=== PATIENT | female | born 1965 | race Caucasian/White ===

== ENCOUNTER → 2017-03-22 | Outpatient (CLI) | payer BC ==
--- NOTE | 2017-03-22 12:42 | REPMRS ---
Patient History The patient states she has not had a clinical breast exam in over a year. No known family history of cancer. Pre-pectoral saline implants in both breasts, 2006. Digital Mammo Screening Bilat: March 22, 2017 - Exam #: [id number] Bilateral CC and MLO view(s) were taken. Technologist: Miriam Adams, Technologist Prior study comparison: 2014, digital bilateral screening mammo, [facility]. FINDINGS: There are scattered fibroglandular densities. There is no evidence of cancer on this mammogram. Bilateral implants grossly intact. ASSESSMENT: BI-RADS/ACR category 2 mammogram. Benign finding(s). Recommendation Routine screening mammogram of both breasts in 1 year (for women over age 40). This mammogram was interpreted with the aid of an FDA-approved computer-aided dectection system. Electronically Signed By: Victorino Razo MD 03/22/17 [id number]
== END ==
LOC: M RAD 09:45
PROVIDERS: ATTEND Family Medicine
DX: Z12.31 Encounter for screening mammogram for malignant neoplasm of breast (principal); Z98.82 Breast implant status; R92.8 Other abnormal and inconclusive findings on diagnostic imaging of breast

== ENCOUNTER → 2017-07-02 | Outpatient (REF) | payer BC ==
[2017-07-02 17:01] LABS: BASO % 0.5 % (0.0-1.0); EOS # 0.1 K/mm3 (0.0-0.50); EOS % 1.3 % (0.0-3.0); LARGE UNSTAINED CELL # 0.1 K/mm3 (0.0-0.4); LARGE UNSTAINED CELL % 1.9 % (0.0-4.0); LYMPH # 1.8 K/mm3 (1.5-4.5); LYMPH % 33.4 % (24.0-44.0); MEAN CORPUSCULAR HEMOGLOBIN 31.3 pg (27.0-33.0); MEAN CORPUSCULAR HGB CONC 34.6 g/dl (32.0-36.5); MEAN CORPUSCULAR VOLUME 90.4 fl (80.0-96.0); MONO # 0.2 K/mm3 (0.0-0.8); MONO % 4.4 % (0.0-5.0); NEUTROPHILS % 58.5 % (36.0-66.0); PLATELET COUNT, AUTOMATED 209 k/mm3 (150-450); RED CELL DISTRIBUTION WIDTH 12.6 % (11.5-14.5); WHITE BLOOD COUNT 5.1 K/mm3 (4.0-10.0)
== END ==
LOC: M SFHCLERA 11:24
PROVIDERS: ATTEND Nurse Practitioner Family
DX: R20.9 Unspecified disturbances of skin sensation (principal)

== ENCOUNTER → 2017-10-01 | Outpatient (REF) | payer BC | LOC: M SFHCLERA 08:58 | PROVIDERS: ATTEND Family Medicine | DX: Z13.1 Encounter for screening for diabetes mellitus (principal); Z13.220 Encounter for screening for lipoid disorders ==

== ENCOUNTER → 2018-05-17 | Outpatient (CLI) | payer BC | LOC: M RAD 09:39 | DX: M79.9 Soft tissue disorder, unspecified (principal) | CPT/HCPCS: 72148 ==

== ENCOUNTER → 2018-11-10 | Outpatient (CLI) | payer BC ==
[~2018-11-10] MED LIST: ALLE60TA69 PO; ARNU1INH; FLON1SPR; MAXA10TA14 PO; PERCOCET PO; VENTAER IN
[2018-11-10 12:59] LABS: BASO # 0.1 10^3/uL (0.0-0.2); BASO % 0.9 % (0.0-1.0); EOS # 0.1 10^3/uL (0.0-0.50); EOS % 1.3 % (0.0-3.0); HEMATOCRIT 35.3 % (36.0-47.0); HEMOGLOBIN 12.3 g/dl (12.0-15.5); LYMPH # 1.4 10^3/uL (1.5-4.5); LYMPH % 26.1 % (24.0-44.0); MEAN CORPUSCULAR HGB CONC 34.8 g/dl (32.0-36.5); MEAN CORPUSCULAR VOLUME 88.9 fl (80.0-96.0); MONO # 0.3 10^3/uL (0.0-0.8); NEUTROPHILS # 3.5 10^3/uL (1.8-7.7); NEUTROPHILS % 65.3 % (36.0-66.0); PLATELET COUNT, AUTOMATED 217 10^3/uL (150-450); RED BLOOD COUNT 3.97 10^6/uL (4.00-5.40); WHITE BLOOD COUNT 5.4 10^3/uL (4.0-10.0)
[2018-11-10 13:16] LABS: BLOOD UREA NITROGEN 11 MG/DL (7-18); CALCIUM LEVEL 8.6 MG/DL (8.5-10.1); CARBON DIOXIDE LEVEL 30 MEQ/L (21-32); CHLORIDE LEVEL 109 MEQ/L (98-107); CREATININE FOR GFR 0.76 MG/DL (0.55-1.30); GLOMERULAR FILTRATION RATE > 60.0 (>51); GLUCOSE, FASTING 99 MG/DL (70-100); POTASSIUM SERUM 3.8 MEQ/L (3.5-5.1); SODIUM LEVEL 143 MEQ/L (136-145)
== END ==
LOC: M LRY 11:09
PROVIDERS: ATTEND Plastic Surgery Surgery of the Hand
DX: Z01.818 Encounter for other preprocedural examination (principal); L90.5 Scar conditions and fibrosis of skin

== ENCOUNTER 2018-11-24 06:05 | Day surgery (SDC) | payer BC ==
[~2018-11-24] VITALS: Ht 175.3 cm; Wt 72.6 kg
[~2018-11-24 06:05] MED LIST changes: +LR 1,000 ML IV ONE; -PERCOCET PO
[2018-11-24] MEDS ORDERED: ceFAZolin 2 GM/D5W 50 ML IV BAG (J0690 PER 500MG) As Ordered ONE (06:51)
[2018-11-24] MEDS ORDERED: LIDOCAINE 1% MDV 20ML VIAL As Ordered ONE (08:17)
[2018-11-24] MEDS ORDERED: EPINEPHrine INJ 1 MG/ML 1ML AMP As Ordered ONE (08:18)
[2018-11-24] MEDS ORDERED: MIDAZOLAM INJ 2 MG/2 ML VIAL (J2250) As Ordered ONE (08:58)
[2018-11-24] MEDS ORDERED: LIDOCAINE 2% INJ 100 MG/5 ML SDV (FOR ANES.) As Ordered ONE (08:58)
[2018-11-24] MEDS ORDERED: dexameTHASONE 4 MG/ML 1ML VIAL (J1100) As Ordered ONE (08:58)
[2018-11-24] MEDS ORDERED: fentaNYL 250 MCG/5 ML INJECTION (J3010) As Ordered ONE (08:58)
[2018-11-24] MEDS ORDERED: ROCURONIUM BROMIDE 50 MG/5 ML VIAL As Ordered ONE (08:58)
[2018-11-24] MEDS ORDERED: PROPOFOL 200 MG/20 ML VIAL As Ordered ONE (08:58)
[2018-11-24] MEDS ORDERED: ceFAZolin 1GM INJ (J0690 PER 500MG) As Ordered ONE (09:04)
[2018-11-24] MEDS ORDERED: ePHEDrine SULFATE 25 MG/5 ML(5MG/ML) SYRINGE As Ordered ONE (09:36)
[2018-11-24] MEDS ORDERED: GLYCOPYRROLATE INJ 0.2 MG/ML 2 ML VIAL As Ordered ONE (10:21)
[2018-11-24] MEDS ORDERED: NEOSTIGMINE 10 MG/10 ML VIAL (J2710) As Ordered ONE (10:21)
[2018-11-24] MEDS ORDERED: ONDANSETRON 4MG/2ML VIAL (J2405) As Ordered ONE (10:22)
[2018-11-24] MEDS ORDERED: KETOROLAC 60 MG/2 ML VIAL (J1885) As Ordered ONE (10:22)
[2018-11-24] MEDS ORDERED: fentaNYL 100 MCG/2 ML INJECTION (J3010) IV PRN (11:15)
[2018-11-24] MEDS ORDERED: LR 1,000 ML IV SCH (11:15)
[2018-11-24] MEDS ORDERED: ONDANSETRON 4MG/2ML VIAL (J2405) IV PRN (11:15)
--- NOTE | 2018-11-24 11:26 | POST-OPPD ---
Postoperative Procedure Note Date Of Procedure: Nov 24, 2018 PREOPERATIVE DIAGNOSIS: Bilateral buttock scars POSTOPERATIVE DIAGNOSIS: same FINDINGS: Bilateral buttock indented horizontal scars. Left worse than left PROCEDURE: Bilateral buttock scar revision with fat grafting SURGEON: Dr Grande ANESTHESIA: GEN SPECIMENS: none ESTIMATED BLOOD LOSS: 100cc REPLACED: none DRAINS: none COMPLICATIONS: none POSTOPERATIVE CONDITION: stable to recovery SOLIS GRANDE DO Nov 24, 2018 11:26
[2018-11-24] MEDS ORDERED: PERCOCET PO (11:29)
[2018-11-24] MEDS ORDERED: PERCOCET 5MG/325MG TAB PO PRN (11:45)
[2018-11-24 14:00] VITALS: BP 122/64
--- NOTE | 2018-11-24 20:12 | RO ---
DATE OF PROCEDURE: 11/24/2018 PREPROCEDURE DIAGNOSIS: Bilateral buttock scars. POSTPROCEDURE DIAGNOSIS: Bilateral buttock scars. PROCEDURE: Bilateral buttock scar revision with fat grafting. SURGEON: Brea Soliz DO ANESTHESIA: General. There is no specimen. Blood loss: 100 mL. No replacement. No drains needed. No complications. Fluids: Tumescent: 1500cc, Aspirate 1450cc, Injected Fat 400cc DESCRIPTION OF PROCEDURE: This is a 53-year-old female who presents to our office with significant deformity on both buttocks, left is worse than right which is horizontal in nature. The patient fell about a year previously and developed a large hematoma, which upon completion of healing created this indent, which was visible through the clothing. The patient wishes to have it revised and improved. The fat grafting technique was introduced to the patient to minimize the scarring, and long discussion was carried out with the patient and her regarding procedure and risks and benefits of fat transfer to the scar, and they want to proceed. On the day of surgery, today, informed consent was confirmed with the patient and her and all the markings were done in the upright position in holding area with both of them present. We are going to plan to take the fat from the lower abdomen and her lower back. And the patient was brought into the operating room, placed in supine position, sequential stockings placed on the lower calf, general anesthesia was induced, and antibiotics were given. She was prepped and draped in the usual sterile fashion. We started our procedure by making two small incisions along the lower portion of the abdomen. Tumescent solution was infiltrated in the area, 800 mL in the lower abdomen. Tumescent solution is normal saline, 20 mL of lidocaine and 1 amp of epinephrine (epi), and then suction-assisted lipectomy was done from the lower abdomen and collected in our enclosed system for the fat straining. Then, the small stab incisions were closed, good symmetry was achieved in her lower abdomen. And the patient was then repositioned in a prone position, and again prepped and re-draped in the usual sterile fashion. Stab incision carried out in the base of the sacrum, tumescent solution was infiltrated in both flanks, a total of 700cc. Then, suction-assisted lipectomy was performed on the lower back and total liposuction was 1450 for front and back. Then, 1 gram of Ancef was introduced into the fat. Fat was and then strained, and we were ready to do the injection. The scar areas were identified. Small stab incision was carried out in the lateral portions of each scar and then the empty cannula without suction was introduced to break down the scar tissue, which all done in subcuticular plane with cannula palpated at all times, going horizontal plane, so the scar tissue was released and then the fat aspirate was then introduced in the area to smooth out the scar, totaling 200 mL on each side, which created good symmetry. There was a little bulge on the right side above the scar with excess skin and a fat, which was removed through the suction just in that small area to contract the skin and make a better symmetry. So, the stab incisions were then closed with interrupted #4-0 Monocryl sutures, and abdominal binder was placed, patient was extubated in the operating room, placed in the lateral position and transferred to the recovery room completing awake. TAB
== END 2018-11-24 14:05 | disposition home or self-care (01) ==
LOC: M SDC 06:05
PROVIDERS: ATTEND Plastic Surgery Surgery of the Hand
DX: L90.5 Scar conditions and fibrosis of skin (principal); J45.909 Unspecified asthma, uncomplicated; Z79.51 Long term (current) use of inhaled steroids; Z79.899 Other long term (current) drug therapy; Z88.8 Allergy status to other drugs, medicaments and biological substances
CPT/HCPCS: 11954; J0690; J1100; J1885; J2250; J2405; J2710; J3010

== ENCOUNTER → 2019-04-18 | Outpatient (CLI) | payer BC ==
[~2019-04-18] MED LIST changes: -LR 1,000 ML IV ONE; +PERCOCET PO
--- NOTE | 2019-04-20 08:59 | REP ---
MAXILLOFACIAL CT WITHOUT CONTRAST: HISTORY: Recurrent sinusitis. Minimal mucosal thickening is present in the maxillary sinuses. The remaining sinuses are clear. The osteomeatal units are patent. The middle and inferior nasal turbinates are partially paradoxical. There is mild deviation of the nasal septum to the right. A spur is present arising from the left side of the nasal septum. The cribriform plate, medial tavera of the orbits, and optic canals are intact. The carotid canals form a segment of the posterolateral tavera of the sphenoid sinus. The sphenoid sinus septum inserts into the left internal carotid canal wall. IMPRESSION: Sinus mucosal thickening as described above. Electronically Signed by Jorge L Dougherty MD 04/20/2019 09:19 A
== END ==
LOC: M RAD 09:26
PROVIDERS: ATTEND Family Medicine
DX: J32.0 Chronic maxillary sinusitis (principal); J34.89 Other specified disorders of nose and nasal sinuses

== ENCOUNTER → 2019-06-27 | Outpatient (CLI) | payer BC ==
[2019-06-27 18:49] LABS: BASO % 1.1 % (0.0-1.0); EOS # 0.1 10^3/uL (0.0-0.50); EOS % 2.7 % (0.0-3.0); HEMATOCRIT 38.5 % (36.0-47.0); HEMOGLOBIN 13.3 g/dl (12.0-15.5); LYMPH # 1.4 10^3/uL (1.5-4.5); LYMPH % 37.5 % (24.0-44.0); MEAN CORPUSCULAR HEMOGLOBIN 31.7 pg (27.0-33.0); MEAN CORPUSCULAR HGB CONC 34.5 g/dl (32.0-36.5); MEAN CORPUSCULAR VOLUME 91.7 fl (80.0-96.0); MONO # 0.3 10^3/uL (0.0-0.8); MONO % 7.5 % (0.0-5.0); NEUTROPHILS # 1.9 10^3/uL (1.8-7.7); NEUTROPHILS % 51.2 % (36.0-66.0); PLATELET COUNT, AUTOMATED 190 10^3/uL (150-450); WHITE BLOOD COUNT 3.7 10^3/uL (4.0-10.0)
[2019-06-27 18:57] LABS: ALBUMIN 3.9 GM/DL (3.2-5.2); BILIRUBIN,TOTAL 0.4 MG/DL (0.2-1.0); CREATININE FOR GFR 1.13 MG/DL (0.55-1.30); GLOMERULAR FILTRATION RATE 53.4 (>51); IMMUNOGLOBULIN E 32.8 IU/ML (<100); POTASSIUM SERUM 4.4 MEQ/L (3.5-5.1); TOTAL PROTEIN 6.6 GM/DL (6.4-8.2)
[2019-06-30 11:01] LABS: ANTINUCLEAR ANTIBODIES DIRECT Negative (Negative)
== END ==
LOC: M LRY 09:54
PROVIDERS: ATTEND Allergy & Immunology
DX: J45.40 Moderate persistent asthma, uncomplicated (principal); J30.1 Allergic rhinitis due to pollen; L50.0 Allergic urticaria

== ENCOUNTER → 2019-11-30 | Outpatient (CLI) | payer BC ==
--- NOTE | 2019-11-30 12:48 | REPMRS ---
Patient History The patient states she has not had a clinical breast exam in over a year. Family history of lung cancer at age 69 in father. Pre-pectoral saline implants in both breasts, 2007. Digital Mammo Screening Bilat: November 30, 2019 - Exam #: [id number] Bilateral CC and MLO view(s) were taken. Technologist: Amita Be Technologist Prior study comparison: March 22, 2017, bilateral digital mammo screening bilat performed at [facility]. FINDINGS: There are scattered fibroglandular densities. The visualized implant margins are smooth. Breast parenchymal density pattern is essentially symmetric. No dominant mass, grouped microcalcification, or architectural distortion is evident on either side. 3-D tomosynthesis shows no additional findings. No significant changes when compared with prior studies. Assessment: BI-RADS/ACR category 2 mammogram. Benign Findings. Recommendation Routine screening mammogram of both breasts in 1 year (for women over age 40). This patient's Lifetime Breast Cancer RIsk is estimated at 9.5 %. This mammogram was interpreted with the aid of an FDA-approved computer-aided dectection system. Electronically Signed By: Vahid Raymundo MD 11/30/19 0697
== END ==
LOC: M RAD 10:04
PROVIDERS: ATTEND Family Medicine
DX: Z12.31 Encounter for screening mammogram for malignant neoplasm of breast (principal); Z98.82 Breast implant status; Z80.1 Family history of malignant neoplasm of trachea, bronchus and lung

== ENCOUNTER → 2020-04-14 | Outpatient (CLI) | payer BC ==
--- NOTE | 2020-04-14 16:11 | REP ---
RIGHT THIRD DIGIT: Four views of the right 3rd digit are performed. No acute fracture or dislocation is seen. There is mild joint space narrowing at the metacarpophalangeal and interphalangeal joints. There is mild soft tissue swelling. Electronically Signed by Victorino Razo MD 04/14/2020 05:07 P
== END ==
LOC: M LRY 15:11
PROVIDERS: ATTEND Physician Assistant
DX: M19.041 Primary osteoarthritis, right hand (principal); M79.89 Other specified soft tissue disorders

== ENCOUNTER → 2020-05-03 | Outpatient (CLI) | payer BC ==
--- NOTE | 2020-05-03 08:51 | REPPI ---
Clinical: Trauma. Swelling. Technique: AP, lateral, bilateral oblique views right third digit . Findings: The osseous structures and joint spaces are intact and normal. There is no evidence for acute fracture or dislocation. Surrounding soft tissues are unremarkable. No subcutaneous emphysema or radiodense foreign body. Impression: Soft tissue swelling. No acute fracture or dislocation. Electronically Signed by Jimenez Roche MD 05/03/2020 08:43 A
== END ==
LOC: M PLAIMG 08:32
PROVIDERS: ATTEND Family Medicine
DX: M79.89 Other specified soft tissue disorders (principal)

== ENCOUNTER → 2020-05-04 | Outpatient (REF) | payer BC ==
[2020-05-04 16:56] LABS: ALBUMIN 3.7 GM/DL (3.2-5.2); ALT/SGPT 36 U/L (12-78); BILIRUBIN,TOTAL 0.5 MG/DL (0.2-1.0); BLOOD UREA NITROGEN 15 MG/DL (7-18); C REACTIVE PROTEIN QUANTITATIV < 0.30 MG/DL (0.00-0.30); CALCIUM LEVEL 9.3 MG/DL (8.5-10.1); CARBON DIOXIDE LEVEL 29 MEQ/L (21-32); CHLORIDE LEVEL 107 MEQ/L (98-107); CHOLESTEROL LEVEL 229 MG/DL (<200); CREATININE FOR GFR 0.92 MG/DL (0.55-1.30); GLOMERULAR FILTRATION RATE > 60.0 (>51); GLUCOSE, FASTING 88 MG/DL (70-100); HDL CHOLESTEROL 51 MG/DL (>40); LDL CHOLESTEROL 156 MG/DL (<100); NON-HDL-C 178 MG/DL; POTASSIUM SERUM 4.1 MEQ/L (3.5-5.1); SODIUM LEVEL 139 MEQ/L (136-145); TOTAL PROTEIN 6.4 GM/DL (6.4-8.2); TRIGLYCERIDES LEVEL 111 MG/DL (<150)
[2020-05-06 21:07] LABS: ANA (HEP2) Positive (.)
== END ==
LOC: M SFHCLERA 09:16
PROVIDERS: ATTEND Family Medicine
DX: Z13.220 Encounter for screening for lipoid disorders (principal); M79.89 Other specified soft tissue disorders

== ENCOUNTER → 2020-08-26 | Outpatient (REF) | payer BC ==
[2020-08-26 17:04] LABS: C REACTIVE PROTEIN QUANTITATIV < 0.30 MG/DL (0.00-0.30); RHEUMATOID FACTOR QUANT < 10.0 IU/ML (<15.0)
[2020-09-01 17:09] LABS: CYCLIC CITRULLINATED PEPTIDE 6 units (0-19); HLA-B27 Negative (.); Lyme Disease IgG/IgM Antibodie <0.91 ISR (0.00-0.90); Lyme Disease IgM Ab Quantitati <0.80 index (0.00-0.79)
== END ==
LOC: M SFHCRHEU 15:01
PROVIDERS: ATTEND Internal Medicine
DX: M06.4 Inflammatory polyarthropathy (principal)

== ENCOUNTER → 2021-08-17 | Outpatient (CLI) | payer BC ==
[2021-08-17 17:11] LABS: BASO # 0.1 10^3/uL (0.0-0.2); BASO % 1.2 % (0.0-1.0); EOS # 0.1 10^3/uL (0.0-0.5); EOS % 1.7 % (0.0-3.0); HEMATOCRIT 37.2 % (36.0-47.0); HEMOGLOBIN 12.6 g/dl (12.0-15.5); LYMPH # 1.7 10^3/uL (1.5-5.0); LYMPH % 40.7 % (24.0-44.0); MEAN CORPUSCULAR HEMOGLOBIN 30.8 pg (27.0-33.0); MEAN CORPUSCULAR HGB CONC 33.9 g/dl (32.0-36.5); MONO # 0.3 10^3/uL (0.0-0.8); MONO % 7.7 % (2.0-8.0); NEUTROPHILS % 48.5 % (36.0-66.0); PLATELET COUNT, AUTOMATED 222 10^3/uL (150-450); RED BLOOD COUNT 4.09 10^6/uL (4.00-5.40); WHITE BLOOD COUNT 4.1 10^3/uL (4.0-10.0)
[2021-08-17 17:20] LABS: ALBUMIN 3.8 GM/DL (3.2-5.2); ALT/SGPT 31 U/L (12-78); BILIRUBIN,TOTAL 0.3 MG/DL (0.2-1.0); BLOOD UREA NITROGEN 11 MG/DL (7-18); CALCIUM LEVEL 9.3 MG/DL (8.5-10.1); CARBON DIOXIDE LEVEL 29 MEQ/L (21-32); CHLORIDE LEVEL 106 MEQ/L (98-107); CHOLESTEROL LEVEL 217 MG/DL (<200); CHOLESTEROL RISK RATIO 3.338 (<5); CREATININE FOR GFR 0.88 MG/DL (0.55-1.30); GLOMERULAR FILTRATION RATE > 60.0 (>51); GLUCOSE, FASTING 89 MG/DL (70-100); HDL CHOLESTEROL 65 MG/DL (>40); LDL CHOLESTEROL 139 MG/DL (<100); NON-HDL-C 152 MG/DL; POTASSIUM SERUM 3.9 MEQ/L (3.5-5.1); SODIUM LEVEL 143 MEQ/L (136-145); TOTAL PROTEIN 6.5 GM/DL (6.4-8.2); TRIGLYCERIDES LEVEL 65 MG/DL (<150)
== END ==
LOC: M WUC 13:03
PROVIDERS: ATTEND Student in an Organized Health Care Education/Training Program
DX: Z00.00 Encounter for general adult medical examination without abnormal findings (principal)

== ENCOUNTER → 2022-03-08 | Outpatient (CLI) | payer BC | LOC: M RAD 09:05 | PROVIDERS: ATTEND Student in an Organized Health Care Education/Training Program | DX: G43.901 Migraine, unspecified, not intractable, with status migrainosus (principal) ==

== ENCOUNTER → 2023-02-06 | Outpatient (CLI) | payer BC ==
[~2023-02-06] MED LIST changes: -MAXA10TA14 PO; +RIZA10TA64 PO
== END ==
LOC: M WHC 13:30
PROVIDERS: ATTEND Student in an Organized Health Care Education/Training Program
DX: Z12.31 Encounter for screening mammogram for malignant neoplasm of breast (principal)

== ENCOUNTER → 2023-02-07 | Outpatient (CLI) | payer BC ==
[2023-02-07 09:56] LABS: BASO # 0.1 10^3/uL (0.0-0.2); BASO % 1.7 % (0.0-1.0); EOS # 0.1 10^3/uL (0.0-0.5); EOS % 1.7 % (0.0-3.0); HEMATOCRIT 38.2 % (36.0-47.0); HEMOGLOBIN 12.9 g/dl (12.0-15.5); LYMPH # 1.2 10^3/uL (1.5-5.0); LYMPH % 41.1 % (24.0-44.0); MEAN CORPUSCULAR HEMOGLOBIN 30.7 pg (27.0-33.0); MEAN CORPUSCULAR HGB CONC 33.8 g/dl (32.0-36.5); MONO # 0.2 10^3/uL (0.0-0.8); NEUTROPHILS # 1.5 10^3/uL (1.5-8.5); NEUTROPHILS % 48.5 % (36.0-66.0); PLATELET COUNT, AUTOMATED 183 10^3/uL (150-450)
[2023-02-07 10:31] LABS: ALBUMIN 3.9 G/DL (3.2-5.2); ALKALINE PHOSPHATASE 47 U/L (46-116); ALT/SGPT 19 U/L (7.0-40); AST/SGOT 19 U/L (<34); BILIRUBIN,TOTAL 0.6 MG/DL (0.3-1.2); BLOOD UREA NITROGEN 19 MG/DL (9-23); CALCIUM LEVEL 8.9 MG/DL (8.5-10.1); CARBON DIOXIDE LEVEL 26 MMOL/L (20-31); CHLORIDE LEVEL 111 MMOL/L (98-107); CHOLESTEROL LEVEL 215 MG/DL (<200); CHOLESTEROL RISK RATIO 3.96 (<5); GLOMERULAR FILTRATION RATE > 60.0 (>51); GLUCOSE, FASTING 81 MG/DL (60-100); HDL CHOLESTEROL 54.2 MG/DL (>40); LDL CHOLESTEROL 151.4 MG/DL (<100); NON-HDL-C 160.8 MG/DL; POTASSIUM SERUM 3.8 MMOL/L (3.5-5.1); SODIUM LEVEL 143 MMOL/L (136-145); TOTAL PROTEIN 6.1 G/DL (5.7-8.2); TRIGLYCERIDES LEVEL 47 MG/DL (<150)
== END ==
LOC: M WUC 08:21
PROVIDERS: ATTEND Student in an Organized Health Care Education/Training Program
DX: Z00.00 Encounter for general adult medical examination without abnormal findings (principal)

== ENCOUNTER → 2024-02-28 | Outpatient (CLI) | payer BC ==
[2024-02-28 13:25] LABS: BASO # 0.1 10^3/uL (0.0-0.2); BASO % 1.4 % (0.0-1.0); EOS # 0.1 10^3/uL (0.0-0.5); EOS % 1.4 % (0.0-3.0); HEMATOCRIT 41.6 % (36.0-47.0); HEMOGLOBIN 14.2 g/dl (12.0-15.5); LYMPH # 1.4 10^3/uL (1.5-5.0); LYMPH % 38.8 % (24.0-44.0); MEAN CORPUSCULAR HEMOGLOBIN 30.9 pg (27.0-33.0); MEAN CORPUSCULAR HGB CONC 34.1 g/dl (32.0-36.5); MEAN CORPUSCULAR VOLUME 90.6 fl (80.0-96.0); MONO # 0.2 10^3/uL (0.0-0.8); MONO % 6.6 % (2.0-8.0); NEUTROPHILS # 1.9 10^3/uL (1.5-8.5); NEUTROPHILS % 51.5 % (36.0-66.0); PLATELET COUNT, AUTOMATED 211 10^3/uL (150-450); RED BLOOD COUNT 4.59 10^6/uL (4.00-5.40); WHITE BLOOD COUNT 3.7 10^3/uL (4.0-10.0)
[2024-02-28 14:05] LABS: ALBUMIN 3.8 G/DL (3.2-5.2); ALKALINE PHOSPHATASE 50 U/L (46-116); ALT/SGPT 19 U/L (7.0-40); AST/SGOT 18 U/L (<34); BILIRUBIN,TOTAL 0.5 MG/DL (0.3-1.2); BLOOD UREA NITROGEN 16 MG/DL (9-23); CALCIUM LEVEL 9.6 MG/DL (8.5-10.1); CARBON DIOXIDE LEVEL 26 MMOL/L (20-31); CHLORIDE LEVEL 108 MMOL/L (98-107); CHOLESTEROL LEVEL 235 MG/DL (<200); CHOLESTEROL RISK RATIO 4.77 (<5); CREATININE FOR GFR 0.91 MG/DL (0.55-1.30); GLOMERULAR FILTRATION RATE > 60.0 (>51); GLUCOSE, FASTING 78 MG/DL (60-100); HDL CHOLESTEROL 49.2 MG/DL (>40); LDL CHOLESTEROL 168.4 MG/DL (<100); NON-HDL-C 185.8 MG/DL; POTASSIUM SERUM 4.3 MMOL/L (3.5-5.1); SODIUM LEVEL 141 MMOL/L (136-145); THYROID STIMULATING HORMONE 1.234 uIU/ML (0.55-4.78); TOTAL PROTEIN 6.3 G/DL (5.7-8.2); TRIGLYCERIDES LEVEL 87 MG/DL (<150)
== END ==
LOC: M WUC 08:10
PROVIDERS: ATTEND Physician Assistant
DX: Z00.00 Encounter for general adult medical examination without abnormal findings (principal); I10 Essential (primary) hypertension

== ENCOUNTER → 2024-03-03 | Outpatient (CLI) | payer BC | LOC: M WHC 15:00 | PROVIDERS: ATTEND Physician Assistant | DX: Z12.31 Encounter for screening mammogram for malignant neoplasm of breast (principal) ==

== ENCOUNTER 2024-04-17 11:49 | Emergency (ER) | payer BC ==
[~2024-04-17] VITALS: Ht 175.3 cm; Wt 75.1 kg
[2024-04-17 13:00] LABS: EOS # 0.1 10^3/uL (0.0-0.5); EOS % 1.5 % (0.0-3.0); HEMATOCRIT 37.4 % (36.0-47.0); HEMOGLOBIN 13.1 g/dl (12.0-15.5); LYMPH # 1.7 10^3/uL (1.5-5.0); LYMPH % 40.9 % (24.0-44.0); MEAN CORPUSCULAR HEMOGLOBIN 31.6 pg (27.0-33.0); MEAN CORPUSCULAR VOLUME 90.1 fl (80.0-96.0); MONO # 0.3 10^3/uL (0.0-0.8); MONO % 7.4 % (2.0-8.0); NEUTROPHILS % 49.2 % (36.0-66.0); PLATELET COUNT, AUTOMATED 218 10^3/uL (150-450); RED BLOOD COUNT 4.15 10^6/uL (4.00-5.40); WHITE BLOOD COUNT 4.1 10^3/uL (4.0-10.0)
[2024-04-17 13:37] LABS: ALBUMIN 3.9 G/DL (3.2-5.2); ALKALINE PHOSPHATASE 52 U/L (46-116); ALT/SGPT 29 U/L (7.0-40); AST/SGOT 19 U/L (<34); BILIRUBIN,TOTAL 0.5 MG/DL (0.3-1.2); BLOOD UREA NITROGEN 14 MG/DL (9-23); CALCIUM LEVEL 9.4 MG/DL (8.5-10.1); CARBON DIOXIDE LEVEL 26 MMOL/L (20-31); CHLORIDE LEVEL 109 MMOL/L (98-107); CREATININE FOR GFR 0.85 MG/DL (0.55-1.30); GLOMERULAR FILTRATION RATE > 60.0 (>51); GLUCOSE, FASTING 92 MG/DL (60-100); POTASSIUM SERUM 3.5 MMOL/L (3.5-5.1); SODIUM LEVEL 142 MMOL/L (136-145); TOTAL PROTEIN 6.5 G/DL (5.7-8.2)
[2024-04-17] MEDS: POTASSIUM CHLORIDE 10MEQ SR TABLET PO ONE (14:38)
[2024-04-17] MEDS: NS 1,000 ML IV ONE (14:39)
[2024-04-17] MEDS ORDERED: LISI5TAB11 PO (14:57)
[2024-04-17 15:34] VITALS: BP 143/85; TEMP 97.6; O2SAT 100
== END 2024-04-17 15:48 | disposition home or self-care (01) ==
LOC: M ED 11:49
DX: R42 Dizziness and giddiness (principal); T46.1X5A Adverse effect of calcium-channel blockers, initial encounter; I10 Essential (primary) hypertension; R00.1 Bradycardia, unspecified; F10.10 Alcohol abuse, uncomplicated; Z88.5 Allergy status to narcotic agent; Z79.52 Long term (current) use of systemic steroids; Z79.811 Long term (current) use of aromatase inhibitors; Z79.899 Other long term (current) drug therapy

== ENCOUNTER → 2024-04-24 | Outpatient (REF) | payer BC ==
[~2024-04-24] MED LIST changes: +LISI5TAB11 PO
[2024-04-24 18:08] LABS: ALBUMIN 3.9 G/DL (3.2-5.2); ALKALINE PHOSPHATASE 53 U/L (46-116); ALT/SGPT 24 U/L (7.0-40); AST/SGOT 11 U/L (<34); BILIRUBIN,TOTAL 0.5 MG/DL (0.3-1.2); BLOOD UREA NITROGEN 16 MG/DL (9-23); CALCIUM LEVEL 9.8 MG/DL (8.5-10.1); CARBON DIOXIDE LEVEL 26 MMOL/L (20-31); CHLORIDE LEVEL 112 MMOL/L (98-107); CREATININE FOR GFR 0.95 MG/DL (0.55-1.30); GLOMERULAR FILTRATION RATE > 60.0 (>51); GLUCOSE, FASTING 90 MG/DL (60-100); POTASSIUM SERUM 4.4 MMOL/L (3.5-5.1); SODIUM LEVEL 144 MMOL/L (136-145); TOTAL PROTEIN 6.5 G/DL (5.7-8.2)
== END ==
LOC: M SFHCLERA 09:13
PROVIDERS: ATTEND Physician Assistant
DX: I10 Essential (primary) hypertension (principal)

== ENCOUNTER → 2024-05-27 | Outpatient (REF) | payer BC | LOC: M SFHCLERA 12:33 | PROVIDERS: ATTEND Physician Assistant | DX: R06.3 Periodic breathing (principal) ==

== ENCOUNTER → 2024-09-10 | Outpatient (CLI) | payer BC | LOC: M SLEEP HO 10:38 | PROVIDERS: ATTEND Physician Assistant Medical | DX: R40.0 Somnolence (principal) | CPT/HCPCS: G0399 ×2 ==

== ENCOUNTER → 2024-09-25 | Outpatient (CLI) | payer BC ==
[2024-09-25 10:50] LABS: BASO # 0.1 10^3/uL (0.0-0.2); BASO % 1.3 % (0.0-1.0); EOS # 0.1 10^3/uL (0.0-0.5); EOS % 1.9 % (0.0-3.0); HEMATOCRIT 38.6 % (36.0-47.0); HEMOGLOBIN 13.3 g/dl (12.0-15.5); LYMPH # 1.6 10^3/uL (1.5-5.0); LYMPH % 43.2 % (24.0-44.0); MEAN CORPUSCULAR HEMOGLOBIN 31.6 pg (27.0-33.0); MEAN CORPUSCULAR HGB CONC 34.5 g/dl (32.0-36.5); MEAN CORPUSCULAR VOLUME 91.7 fl (80.0-96.0); MONO # 0.3 10^3/uL (0.0-0.8); MONO % 7.5 % (2.0-8.0); NEUTROPHILS # 1.7 10^3/uL (1.5-8.5); NEUTROPHILS % 46.1 % (36.0-66.0); PLATELET COUNT, AUTOMATED 206 10^3/uL (150-450); RED BLOOD COUNT 4.21 10^6/uL (4.00-5.40); WHITE BLOOD COUNT 3.8 10^3/uL (4.0-10.0)
[2024-09-25 11:17] LABS: ALBUMIN 3.8 G/DL (3.2-5.2); ALKALINE PHOSPHATASE 50 U/L (35-104); ALT/SGPT 23 U/L (7.0-40); AST/SGOT 14 U/L (<34); BILIRUBIN,TOTAL 0.5 MG/DL (0.3-1.2); BLOOD UREA NITROGEN 16 MG/DL (9-23); CALCIUM LEVEL 9.5 MG/DL (8.5-10.1); CARBON DIOXIDE LEVEL 28 MMOL/L (20-31); CHLORIDE LEVEL 113 MMOL/L (98-107); CHOLESTEROL LEVEL 259 MG/DL (<200); CHOLESTEROL RISK RATIO 5.19 (<5); GLOMERULAR FILTRATION RATE > 60.0 (>51); GLUCOSE, FASTING 94 MG/DL (60-100); HDL CHOLESTEROL 49.9 MG/DL (>40); LDL CHOLESTEROL 191.3 MG/DL (<100); NON-HDL-C 209.1 MG/DL; POTASSIUM SERUM 4.1 MMOL/L (3.5-5.1); SODIUM LEVEL 144 MMOL/L (136-145); TOTAL PROTEIN 6.5 G/DL (5.7-8.2); TRIGLYCERIDES LEVEL 89 MG/DL (<150)
[2024-09-25 11:20] LABS: TOTAL 25(OH) VITAMIN D 44.5 NG/ML (20.0-100.0)
== END ==
LOC: M WUC 08:16
PROVIDERS: ATTEND Physician Assistant
DX: E55.9 Vitamin D deficiency, unspecified (principal); E78.5 Hyperlipidemia, unspecified

== ENCOUNTER → 2024-12-18 | Outpatient (CLI) | payer BC | LOC: M WHC 12:34 | PROVIDERS: ATTEND Student in an Organized Health Care Education/Training Program | DX: M25.551 Pain in right hip (principal) ==

== ENCOUNTER → 2024-12-24 | Outpatient (CLI) | payer BC | LOC: M CARPUL 08:43 | PROVIDERS: ATTEND Internal Medicine Cardiovascular Disease | DX: R94.31 Abnormal electrocardiogram [ECG] [EKG] (principal); I10 Essential (primary) hypertension; G47.33 Obstructive sleep apnea (adult) (pediatric) ==

== ENCOUNTER → 2025-01-02 | Outpatient (CLI) | payer BC | LOC: M SLEEP 20:00 | PROVIDERS: ATTEND Physician Assistant | DX: G47.33 Obstructive sleep apnea (adult) (pediatric) (principal) ==

== ENCOUNTER 2025-01-21 06:12 | Emergency (ER) | payer BC ==
[~2025-01-21] VITALS: Ht 175.3 cm; Wt 77.2 kg
[2025-01-21 07:38] VITALS: BP 116/67; TEMP 96.7; O2SAT 95
== END 2025-01-21 07:41 | disposition home or self-care (01) ==
LOC: M ED 06:12
DX: S61.215A Laceration without foreign body of left ring finger without damage to nail, initial encounter (principal); W27.4XXA Contact with kitchen utensil, initial encounter; I10 Essential (primary) hypertension; J45.909 Unspecified asthma, uncomplicated; G43.909 Migraine, unspecified, not intractable, without status migrainosus; Z79.52 Long term (current) use of systemic steroids; Z79.899 Other long term (current) drug therapy; Z88.8 Allergy status to other drugs, medicaments and biological substances; Y92.009 Unspecified place in unspecified non-institutional (private) residence as the place of occurrence of the external cause; Y93.89 Activity, other specified; Y99.9 Unspecified external cause status

== ENCOUNTER → 2025-03-01 | Outpatient (CLI) | payer BC ==
[2025-03-01 13:23] LABS: C REACTIVE PROTEIN QUANTITATIV < 0.50 MG/DL (<1.0)
[2025-03-01 13:24] LABS: ALBUMIN 3.8 G/DL (3.2-5.2); ALKALINE PHOSPHATASE 62 U/L (35-104); ALT/SGPT 35 U/L (7.0-40); AST/SGOT 23 U/L (<34); BILIRUBIN,TOTAL 0.4 MG/DL (0.3-1.2); BLOOD UREA NITROGEN 18 MG/DL (9-23); CALCIUM LEVEL 9.3 MG/DL (8.5-10.1); CARBON DIOXIDE LEVEL 30 MMOL/L (20-31); CHLORIDE LEVEL 105 MMOL/L (98-107); CREATININE FOR GFR 0.85 MG/DL (0.55-1.30); GLOMERULAR FILTRATION RATE 78.9 (>51); GLUCOSE, FASTING 91 MG/DL (60-100); POTASSIUM SERUM 3.9 MMOL/L (3.5-5.1); RHEUMATOID FACTOR QUANT < 3.5 IU/ML (<14); SODIUM LEVEL 142 MMOL/L (136-145); TOTAL PROTEIN 6.3 G/DL (5.7-8.2)
[2025-03-01 13:26] LABS: THYROID STIMULATING HORMONE 1.533 uIU/ML (0.55-4.78)
== END ==
LOC: M WUC 10:59
PROVIDERS: ATTEND Student in an Organized Health Care Education/Training Program
DX: M79.89 Other specified soft tissue disorders (principal)

== ENCOUNTER → 2025-08-06 | Outpatient (REF) | payer BC | LOC: M SFHCPLAZ 15:01 | PROVIDERS: ATTEND Family Medicine | DX: Z53.9 Procedure and treatment not carried out, unspecified reason (principal); I10 Essential (primary) hypertension; E78.2 Mixed hyperlipidemia ==

== ENCOUNTER → 2025-10-08 | Outpatient (CLI) | payer BC ==
[2025-10-08 18:33] LABS: ESTRADIOL < 19.0 PG/ML; TESTOSTERONE 9 NG/DL (14-76)
== END ==
LOC: M PLALAB 15:06
PROVIDERS: ATTEND Advanced Practice Midwife
DX: N95.1 Menopausal and female climacteric states (principal); Z12.72 Encounter for screening for malignant neoplasm of vagina; Z90.710 Acquired absence of both cervix and uterus
CPT/HCPCS: 36415; 82670; 84270; 84403; 87624; G0123